=== PATIENT | female | born 1990 | race Caucasian/White ===

== ENCOUNTER 2017-02-23 12:12 | Inpatient (IN) | payer OTHER ==
[2017-02-23 13:06] LABS: HEMATOCRIT 44.7 % (36.0-47.0); HEMOGLOBIN 14.7 g/dl (12.0-16.0); MEAN CORPUSCULAR HEMOGLOBIN 28.6 pg (27.0-33.0); MEAN CORPUSCULAR HGB CONC 32.9 g/dl (32.0-36.5); PLATELET COUNT, AUTOMATED 302 10^3/uL (150-450); RED BLOOD COUNT 5.14 10^6/uL (4.00-5.40); RED CELL DISTRIBUTION WIDTH 13.2 % (11.5-14.5); WHITE BLOOD COUNT 10.5 10^3/uL (4.0-10.0)
[2017-02-23 13:22] LABS: CONTROL LINE HCG INT CTR LINE PRESENT; HCG, SERUM QUALITATIVE NEGATIVE (NEGATIVE)
[2017-02-23 13:26] LABS: AMPHETAMINES LEVEL URINE NEGATIVE (NEGATIVE); BARBITURATES URINE NEGATIVE (NEGATIVE); BENZODIAZEPINES URINE POSITIVE (NEGATIVE); CANNABINOIDS URINE POSITIVE (NEGATIVE); COCAINE METABOLITE URINE NEGATIVE (NEGATIVE); METHADONE URINE NEGATIVE (NEGATIVE); OPIATES URINE NEGATIVE (NEGATIVE); PHENCYCLIDINE URINE NEGATIVE (NEGATIVE)
[2017-02-23 13:38] LABS: ALBUMIN/GLOBULIN RATIO 1.08 (1.00-1.93); ALKALINE PHOSPHATASE 57 U/L (45-117); ALT/SGPT 92 U/L (12-78); ANION GAP 7 MEQ/L (8-16); AST/SGOT 45 U/L (7-37); BILIRUBIN,DIRECT 0.1 MG/DL (0.0-0.2); BILIRUBIN,TOTAL 0.4 MG/DL (0.2-1.0); BLOOD UREA NITROGEN 11 MG/DL (7-18); CARBON DIOXIDE LEVEL 26 MEQ/L (21-32); CHLORIDE LEVEL 106 MEQ/L (98-107); CREATININE FOR GFR 0.65 MG/DL (0.55-1.02); ETHYL ALCOHOL (ETHANOL) < 0.003 % (0.000-0.010); GLOMERULAR FILTRATION RATE > 60.0 (>60); GLUCOSE, FASTING 87 MG/DL (70-105); POTASSIUM SERUM 4.3 MEQ/L (3.5-5.1); SALICYLATE LEVEL < 1.7 MG/DL (5.0-30.0); SODIUM LEVEL 139 MEQ/L (136-145); THYROID STIMULATING HORMONE 0.885 uIU/ML (0.358-3.740); TOTAL PROTEIN 7.7 GM/DL (6.4-8.2)
[2017-02-23 13:40] LABS: ACETAMINOPHEN LEVEL < 2.0 UG/ML (10.0-30.0)
[2017-02-23] MEDS ORDERED: MAALOX 30 ML SUSP *UDC PO (15:00)
[2017-02-23] MEDS ORDERED: MOM 30ML SUSPENSION UDC PO (15:00)
[2017-02-23] MEDS: clonazePAM 1 MG TAB PO ×2 (16:47→21:19)
[2017-02-23] MEDS: traZODone 50 MG TAB PO (21:20)
[2017-02-23] MEDS: lamoTRIgine 100MG TAB PO (21:20)
[2017-02-23] MEDS: risperiDONE 0.5 MG TAB PO (21:20)
[2017-02-24] MEDS: SERTRALINE 100 MG TAB PO (09:03)
[2017-02-24] MEDS: lamoTRIgine 100MG TAB PO ×2 (09:04→21:15)
[2017-02-24] MEDS: clonazePAM 1 MG TAB PO ×3 (09:04→21:15)
[2017-02-24] MEDS: traZODone 50 MG TAB PO (21:15)
[2017-02-24] MEDS: risperiDONE 0.5 MG TAB PO (21:15)
[2017-02-25] MEDS: clonazePAM 1 MG TAB PO ×3 (08:34→21:09)
[2017-02-25] MEDS: SERTRALINE 100 MG TAB PO (08:34)
[2017-02-25] MEDS: lamoTRIgine 100MG TAB PO ×2 (08:34→21:09)
[2017-02-25] MEDS: risperiDONE 1 MG TAB PO (21:09)
[2017-02-25] MEDS: traZODone 100 MG TAB PO (21:59)
[2017-02-26] MEDS: SERTRALINE 100 MG TAB PO (08:53)
[2017-02-26] MEDS: clonazePAM 1 MG TAB PO ×3 (08:53→21:21)
[2017-02-26] MEDS: lamoTRIgine 100MG TAB PO ×2 (08:53→21:21)
[2017-02-26] MEDS: traZODone 100 MG TAB PO (21:21)
[2017-02-26] MEDS: risperiDONE 1 MG TAB PO (21:21)
[2017-02-27] MEDS: ACETAMINOPHEN TAB 650MG DOSE (2X325MG) PO ×2 (08:56→16:14)
[2017-02-27] MEDS: clonazePAM 1 MG TAB PO ×3 (08:56→20:49)
[2017-02-27] MEDS: SERTRALINE 100 MG TAB PO (08:56)
[2017-02-27] MEDS: lamoTRIgine 100MG TAB PO ×2 (08:56→20:49)
[2017-02-27] MEDS: risperiDONE 1 MG TAB PO (20:49)
[2017-02-28] MEDS: lamoTRIgine 100MG TAB PO ×2 (09:03→21:20)
[2017-02-28] MEDS: clonazePAM 1 MG TAB PO ×3 (09:03→21:20)
[2017-02-28] MEDS: SERTRALINE 100 MG TAB PO (09:03)
[2017-02-28] MEDS: traZODone 100 MG TAB PO (21:19)
[2017-03-01] MEDS: clonazePAM 1 MG TAB PO ×3 (08:55→20:46)
[2017-03-01] MEDS: SERTRALINE 100 MG TAB PO (08:55)
[2017-03-01] MEDS: lamoTRIgine 100MG TAB PO ×2 (08:55→20:46)
[2017-03-01 10:36] LABS: ALBUMIN 3.5 GM/DL (3.2-5.2); ALBUMIN/GLOBULIN RATIO 0.88 (1.00-1.93); ALKALINE PHOSPHATASE 62 U/L (45-117); ALT/SGPT 66 U/L (12-78); ANION GAP 5 MEQ/L (8-16); AST/SGOT 31 U/L (7-37); BILIRUBIN,TOTAL 0.4 MG/DL (0.2-1.0); BLOOD UREA NITROGEN 11 MG/DL (7-18); CALCIUM LEVEL 8.9 MG/DL (8.5-10.1); CARBON DIOXIDE LEVEL 29 MEQ/L (21-32); CHLORIDE LEVEL 106 MEQ/L (98-107); CREATININE FOR GFR 0.76 MG/DL (0.55-1.02); GLOMERULAR FILTRATION RATE > 60.0 (>60); GLUCOSE, FASTING 137 MG/DL (70-105); SODIUM LEVEL 140 MEQ/L (136-145); TOTAL PROTEIN 7.5 GM/DL (6.4-8.2)
[2017-03-01] MEDS: traZODone 100 MG TAB PO (20:46)
[2017-03-02] MEDS: lamoTRIgine 100MG TAB PO (08:51)
[2017-03-02] MEDS: clonazePAM 1 MG TAB PO (08:51)
[2017-03-02] MEDS: SERTRALINE 100 MG TAB PO (08:51)
[2017-03-02] MEDS ORDERED: ARIPiprazole 10 MG TAB PO (21:00)
== END 2017-03-02 10:45 | disposition home or self-care (01) | DRG 753 ==
LOC: M ED 12:12 → M ED INP 14:50 → M PSY 16:30
DX: F31.5 Bipolar disorder, current episode depressed, severe, with psychotic features (principal); R45.851 Suicidal ideations; F41.1 Generalized anxiety disorder; F41.0 Panic disorder [episodic paroxysmal anxiety]; Z79.899 Other long term (current) drug therapy